=== PATIENT | male | born 1945 | race Caucasian/White ===

== ENCOUNTER → 2024-06-01 | Day surgery (SDC) | payer MEDICARE ==
[2024-05-27 11:09] LABS: BASOPHILS % 0.9 % (0.0-1.0); EOSINOPHILS # (AUTO) 0.3 (0.0-0.4); EOSINOPHILS % 5.9 % (0.0-6.0); HEMATOCRIT 46.3 % (38.2-49.6); HEMOGLOBIN 14.6 g/dL (14.0-18.0); LYMPHOCYTES # (AUTO) 1.6 (1.0-3.2); LYMPHOCYTES % 35.7 % (18.0-39.1); MEAN CORPUSCULAR HEMOGLOBIN 33.4 pg (28-32); MEAN CORPUSCULAR HGB CONC 31.5 g/dL (31-35); MEAN CORPUSCULAR VOLUME 105.9 fL (81-99); MONOCYTES # (AUTO) 0.5 (0.2-0.8); MONOCYTES % 11.4 % (4.4-11.3); NEUTROPHILS # (AUTO) 2.1 (2.1-6.9); NEUTROPHILS % 45.9 % (38.7-80.0); PLATELET COUNT 138 x10e3/uL (140-360); RED BLOOD COUNT 4.37 x10e6/uL (4.3-5.7); RED CELL DISTRIBUTION WIDTH 12.4 % (11.7-14.4); WHITE BLOOD COUNT 4.57 x10e3/uL (4.8-10.8)
[2024-05-27 11:41] LABS: ALBUMIN 3.7 g/dL (3.5-5.0); ALBUMIN/GLOBULIN RATIO 1.5 (0.8-2.0); ANION GAP 14.3 mmol/L (8-16); BILIRUBIN,TOTAL 1.7 mg/dL (0.2-1.2); CALCIUM 9.1 mg/dL (8.4-10.2); CREATININE, SERUM 0.95 mg/dL (0.72-1.25); POTASSIUM 4.3 mmol/L (3.5-5.1); TOTAL PROTEIN 6.1 g/dL (6.5-8.1)
[~2024-06-01] MED LIST: ATENOLOL50 MG PO; B-121000 MC1; ECOTRIN81 MG PO; FAMOTIDINE20 MG PO; FISH OIL 1,2001 EACH; GARLIC1000 MG; HYDROCHLOROTH12.5 MG PO; LIDOCAINE HCL 2% LOCAL INJ 5 ML SDV VIAL INJ ONE; MAGNESIUM; NAC600 MG; NIACIN ER1000 MG PO; PEPCID40 MG PO; PLAQUENIL200 MG PO; POTASSIU; POTASSIUM GLUCO90 MG; PRESERVISION A1 EAC4 PO; PROPOFOL IV EMULSION 10 MG/ML 20 ML VIAL ONE; QUERCETIN PO; RAMIPRIL5 MG PO; RED YEAST RICE600 MG; SAW PALMETTO450 MG PO; TOPROL XL100 MG PO; UBIQUINOL100 MG PO; VITAMIN C1000 MG PO; VITAMIN D3125 MCG/1; VITAMIN K2100 MCG PO; ZEGERID OTC 201 EACH; ZINC PO; [UNRECOGNIZED DRUG - OTHER] PO
[2024-06-01] MEDS: LACTATED RINGER'S 1,000 ML ONE (06:41)
[2024-06-01 09:22] VITALS: TEMP 97
[2024-06-01 10:00] VITALS: BP 141/82; PULSE 64; RESP 16; O2SAT 99
== END | disposition home or self-care (01) ==
LOC: OR 06:05
PROVIDERS: ATTEND Surgery
DX: K22.70 Barrett's esophagus without dysplasia (principal); K29.00 Acute gastritis without bleeding; K29.50 Unspecified chronic gastritis without bleeding; K31.1 Adult hypertrophic pyloric stenosis; K21.00 Gastro-esophageal reflux disease with esophagitis, without bleeding; K44.9 Diaphragmatic hernia without obstruction or gangrene; Z98.890 Other specified postprocedural states; I25.10 Atherosclerotic heart disease of native coronary artery without angina pectoris; I10 Essential (primary) hypertension; E78.5 Hyperlipidemia, unspecified; I25.2 Old myocardial infarction; F17.210 Nicotine dependence, cigarettes, uncomplicated; Z88.6 Allergy status to analgesic agent; Z01.810 Encounter for preprocedural cardiovascular examination; Z01.812 Encounter for preprocedural laboratory examination; Z79.82 Long term (current) use of aspirin; Z79.899 Other long term (current) drug therapy; Z95.5 Presence of coronary angioplasty implant and graft
CPT/HCPCS: 36415; 43239; 43245; 80053; 85025; 88305; 88312; 93005; C1726; J2003; J2704; J7121; 43233